=== PATIENT | male | born 1960 | race Caucasian/White ===

== ENCOUNTER → 2016-08-23 | Outpatient (CLI) | payer BC ==
[2014-04-15 13:30] VITALS: BP 130/76
[~2016-08-23] MED LIST: BUDE10.2 IH; OXYC-323 PO
--- NOTE | 2016-08-23 08:57 | KCIC ---
Single view the orbits INDICATION: MRI clearance FINDINGS: There is no radiographic evidence for presence of a metallic foreign body overlying the orbits. IMPRESSION: No radiographic evidence for presence of metallic foreign body overlying the orbits. Electronically signed by: Paul Friend MD (08/23/2016 8:53 AM)
--- NOTE | 2016-08-23 09:44 | KCIC ---
Examination: MRI of the left knee without contrast HISTORY: History of left knee pain in the anterolateral aspect multiple injuries COMPARISON: 01/02/2015 Technique: Multiplanar, multisequence MR imaging of the left knee were performed without contrast FINDINGS: The anterior cruciate ligament, posterior cruciate ligament appear intact. The medial meniscus is intact. The lateral meniscus is attenuated particularly in the body and posterior horn with blunting of the posterior horn of the lateral meniscus grossly similar to prior exam probably prior changes of meniscal surgery or a retear. The extensor mechanism is intact. There is a multiloculated cystic structure identified posterior to the tibial plateau measuring 3.0 x 1.9 cm likely ganglion cyst slightly more prominent compared to prior exam. The medial retinaculum, lateral retinaculum appear intact There is deep fissuring of cartilage identified at the patellofemoral and the lateral compartments likely grade 2 chondromalacia. There is mild trabecular edema identified in the anterior aspect of the lateral femoral condyle. Small knee joint effusion. IMPRESSION: 1. The lateral meniscus is attenuated particularly in the body and posterior horn with blunting of the posterior horn of the lateral meniscus grossly similar to prior exam probably prior changes of meniscal surgery or a retear. 2. There is a multiloculated cystic structure identified posterior to the tibial plateau measuring 3.0 x 1.9 cm likely ganglion cyst slightly more prominent compared to prior exam. 3. Grade II chondromalacia patellofemoral, lateral compartment with the mild trabecular edema identified in the anterior aspect of the lateral femoral condyle. Electronically signed by: Farhat Jeter MD (08/23/2016 9:40 AM)
== END | disposition home or self-care (01) ==
LOC: KCIC MRI 08:29
PROVIDERS: ATTEND Orthopaedic Surgery Sports Medicine
DX: Z13.5 Encounter for screening for eye and ear disorders (principal); M25.562 Pain in left knee; M25.462 Effusion, left knee
CPT/HCPCS: 70030; 73721